=== PATIENT | female | born 1985 | race Caucasian/White ===

== ENCOUNTER 2021-06-22 10:06 | Emergency (ER) | payer MEDICAID, SELFPAY ==
[2021-06-22 10:33] VITALS: BP 124/72; PULSE 98; RESP 18; TEMP 36.8; O2SAT 99; BMI 24.2
--- NOTE | 2021-06-22 10:38 | DI.RAD.S_ITS ---
PROCEDURE: XR CHEST 2V INDICATIONS: cough, fever, congestion, sob TECHNIQUE: 2 views of the chest were acquired. COMPARISON: [facility], CR, CHEST 2VW, 07/08/2013, 20:35. FINDINGS: Surgical changes and devices: None. Lungs and pleura: No consolidation, pleural effusions or pneumothorax. Mediastinum: Mediastinal contours are normal. Heart size is normal. Bones and chest wall: No suspicious bony abnormalities. Soft tissues appear unremarkable. IMPRESSION: No acute cardiopulmonary abnormality. Dictated by: Nahmu Apple M.D. on 06/22/2021 at 10:49 Approved by: Nahum Apple M.D. on 06/22/2021 at 10:51
[2021-06-22 11:01] LABS: COVID19 -Nasal RAPID Negative (Negative)
== END 2021-06-22 13:03 | disposition left against medical advice (07) ==
PROVIDERS: Emergency Provider Emergency Medicine
DX: R07.9 Chest pain, unspecified (principal); R06.02 Shortness of breath; R05.9 Cough, unspecified; Z20.822 Contact with and (suspected) exposure to COVID-19
CPT/HCPCS: 71046; 87635; 99283; C9803